=== PATIENT | male | born 1980 | race Caucasian/White ===

== ENCOUNTER → 2016-10-28 10:00 | Emergency (ER) | payer OTHER ==
[~2016-10-28 10:00] MED LIST: HYDROcodone/ACETAMIN 5-325 MG* 1 TAB PO ONE; Iohexol 350* (CONTRAST) 500 ML MDV IV ONE
[2016-10-28 10:35] LABS: Hematocrit 41 % (42-52); Hemoglobin 13.6 g/dl (14.0-18.0); Mean Corpuscular HGB Conc 33 g/dl (31-36); Mean Corpuscular Hemoglobin 31 pg (27-31); Mean Corpuscular Volume 95 fL (80-94); Mean Platelet Volume 9 um3 (7.4-10.4); Red Blood Count 4.36 10^6/ul (4.0-5.4); Red Cell Distribution Width 14 % (10.5-15)
--- NOTE | 2016-10-28 11:06 | CONSULT ---
Consult Consult: Surgery Consult Asked by Dr. Obregon to evaluate laceration on arm of pt. Mr. Corona is a 36 y.o. male who reportedly intentionally cut his left arm and neck [facility] in [facility]. Upon arrival to ER he had been estimated to have lost 2 liters of blood. He was hypotensive and there was arterial bleeding from the left arm laceration. Dr. Obregon was able to stop the bleeding with some sutures and has asked me to assess whether this is adequate control for transfer. PMHx: none Meds: none NKDA SH: smokes tob. Vital Signs 10/28/16 10/28/16 10:24 11:02 Temperature 98.7 F Pulse Rate 70 61 Respiratory 20 17 Rate Blood Pressure 119/65 (mmHg) O2 Sat by Pulse 98 99 Oximetry PE: general: WDWN pale male in NAD HEENT: ~10 cm superficial laceration to left neck, no active bleeding. Ext: Left arm is notable for ~18 cm laceration extending from upper arm across antecubital fossa to lower arm. There is exposed subcutaneous fat, tendons and veins. There is some suture material visible. There is no active bleeding. There is a pink color to the hand and good capillary refill. The radial pulse is easily palpable. Laboratory Results - last 24 hr 10/28/16 10/28/16 10/28/16 10:18 10:18 10:18 WBC 11.0 H RBC 4.36 Hgb 13.6 L Hct 41 L MCV 95 H MCH 31 MCHC 33 RDW 14 Plt Count 184 MPV 9 Neut % (Auto) 60.4 Lymph % (Auto) 28.4 [place] % (Auto) 8.6 Eos % (Auto) 1.9 Baso % (Auto) 0.7 Absolute Neuts (auto) 6.7 Absolute Lymphs (auto) 3.1 Absolute Monos (auto) 1.0 H Absolute Eos (auto) 0.2 Absolute Basos (auto) 0.1 Absolute Nucleated RBC 0.01 Nucleated RBC % 0 INR (Anticoag Therapy) 0.94 APTT 26.2 Blood Type A Positive Antibody Screen Negative Crossmatch See Detail A/P: With no active bleeding, Mr. Corona is stable for transfer. A more complete assessment of the arterial flow to the arm may be in order and if intervention needed, such as vascular repair, he will need vascular surgery. CLFoster
[2016-10-28 12:33] LABS: Albumin 3.6 g/dL (3.2-5.2); BUN/Creatinine Ratio 21.3 (8-20); EGFR Non-African American 95.7 (>60); Globulin 2.4 g/dL (2-4); Potassium 4.2 mmol/L (3.5-5.0); Total Bilirubin 0.3 mg/dL (0.2-1.0)
[2016-10-28 13:11] LABS: Hematocrit 40 % (42-52); Hemoglobin 13.3 g/dl (14.0-18.0)
--- NOTE | 2016-10-28 14:16 | RAD ---
INDICATION: Laceration. Evaluate for extravasation. COMPARISON: None TECHNIQUE: 319 axial source images were acquired following the intravenous injection of 125 cc Omnipaque 350. Coronal and sagittal reconstructed images were acquired. Imaging was performed with the patient's arm at his side which results in some degree of artifact and degrades the images. FINDINGS: The CT confirms vascular patency to the level of the forearm. Evaluation of the radial and ulnar arteries is very limited but the vessels are believed to be patent. There The sensitivity of this examination is not adequate to evaluate for subtle extravasation which would require routine arteriography. This study must be viewed in context with the clinical examination and the presence or absence of radial and ulnar pulses. Doppler interrogation could also be utilized as an adjunct. There is no significant soft tissue hematoma. IMPRESSION: NO GROSS ABNORMALITIES IDENTIFIED WITHIN THE LIMITATIONS OF THE CT EXAMINATION. CLINICAL AND ADDITIONAL IMAGING FOLLOW-UP MAY BE REQUIRED.
--- NOTE | 2016-10-28 16:38 | PN ---
Progress Note - Progress Note Note: Procedure note Under sterile conditions, using 1% lidocaine, Left arm laceration sutured closed using interrupted 3-0 polysorb in the subcutaneous layer and 4-0 surgipro in a continuous horizontal mattress stitch to close the skin. The left neck incision was closed using 1% lidocaine and 4-0 surgipro to close the skin in a horizontal continuous mattress stitch. Pt. tolerated the procedure well. Xeroform and dry sterile dressing applied. Pt. to leave dressing in place for 48 hours then remove and keep clean with soap and water daily. He should f/u in the office in ~7 days. CL[facility]oster
[2016-10-28 18:55] VITALS: BP 134/62
--- NOTE | 2016-10-28 21:34 | ED ---
Amie Roberts Anna, scribed for Buck Obregon MD on 10/28/16 at 1025 . Adult Trauma - HPI Summary HPI Summary: Patient is a 36 y/o male BIBA to [facility] presenting with the sudden onset of a constant laceration that occurred at 0910 this morning. The patient reports he cut himself with a razor. The laceration extends from his left superior aspect of the antecubital fossa to his left wrist. Upon arrival at [facility], the patient initially had a really tight tourniquet with bluish discoloration of his left upper extremity. He had no feeling in the upper extremity. The patient lost an estimated 2 1/2 L blood at the facility. He is additionally pale and diaphoretic. He reports he had a tetanus vaccine 2 years ago. Patient medications were reviewed on this visit. - History of Current Complaint Stated Complaint: LACERATION Hx Obtained From: Patient Mechanism of Injury: Penetrating Trauma - razor - Allergy/Home Medications Allergies/Adverse Reactions: Allergies Allergy/AdvReac Type Severity Reaction Status Date / Time No Known Allergies Allergy Verified 10/28/16 10:54 PMH/Surg Hx/FS Hx/Imm Hx Cardiovascular History: Denies: Hx Cardiac Arrest Psychiatric History: Reports: Hx Anxiety, Hx Depression - medicated on Zoloft - Family History Known Family History: Positive: Other - CA - Social History Occupation: Unemployed Lives: Alf - Half-Way Hx Substance Use: No Substance Use Type: Reports: None Hx Tobacco Use: No Smoking Status (MU): Never Smoked Tobacco Review of Systems Constitutional: Other - pale Positive: Skin Diaphoresis Skin: Other - Laceration. Pale skin. LUE bluish. Positive: Numbness All Other Systems Reviewed And Are Negative: Yes Physical Exam - Summary Physical Exam Summary: VITAL SIGNS: Reviewed. GENERAL: ~Patient is a well-developed and nourished male who is lying in the stretcher. ~Patient is pale, diaphoretic, and hypotensive. HEAD AND FACE: No signs of trauma. ~No ecchymosis, hematomas or skull depressions. No sinus tenderness. EYES: PERRLA, EOMI x 2, No injected conjunctiva, no nystagmus. EARS: Hearing grossly intact. Ear canals and tympanic membranes are within normal limits. MOUTH: Oropharynx within normal limits. NECK: Superficial laceration left side of neck. Supple, trachea is midline, no adenopathy, no JVD, no carotid bruit, no c-spine tenderness, neck with full ROM. CHEST: Symmetric, no tenderness at palpation LUNGS: Clear to auscultation bilaterally. No wheezing or crackles. CVS: Regular rate and rhythm, S1 and S2 present, no murmurs or gallops appreciated. Good pulses throughout. ABDOMEN: Soft, non-tender. No signs of distention. No rebound no guarding, and no masses palpated. Bowel sounds are normal. EXTREMITIES: Upon arrival, patient has bluish discoloration of the upper extremity with no feeling as a result of a tight tourniquet. We untied the tourniquet and controlled the arterial bleed. His arm is now a pink color with good neurovascular sensation and good capillary refill. NEURO: Alert and oriented x 3. No acute neurological deficits. Speech is normal and follows commands. SKIN: Laceration extending from supperior aspect of the left antecubital fossa all the way to the wrist. laceration is deep and muscle , addipose tissue and vasculature as well as tendons are exposed. . It is an arterial bleed. The patient also has a superficial laceration on the left side of his neck. The patient is pale. Upon arrival, patient has bluish discoloration of the upper extremity with no feeling as a result of a tight tourniquet. We untied the tourniquet and controlled the arterial bleed. His arm is now a pink color with good neurovascular sensation and good capillary refill. Triage Information Reviewed: Yes Vital Signs On Initial Exam: Temp Pulse Resp BP Pulse Ox 98.7 F 61 17 119/65 99 10/28/16 10:24 10/28/16 11:02 10/28/16 11:02 10/28/16 10:24 10/28/16 11:02 Vital Signs Reviewed: Yes Procedures - Procedure Summary Procedure Summary: Pt came in with an arterial bleed. We localized it. It probably is an ulna recurrent or ulna colateral artery. We placed two sutures and the bleeding was controlled. Right now the pt is not having any arterial bleed and the bleed is controlled. Diagnostics - Vital Signs Vital Signs Temp Pulse Resp BP Pulse Ox 10/28/16 18:45 75 20 134/62 96 10/28/16 18:30 74 17 114/69 97 10/28/16 18:15 78 16 130/66 97 10/28/16 18:00 74 20 97 10/28/16 17:45 85 16 97 10/28/16 17:29 77 16 97 10/28/16 17:15 73 17 96 10/28/16 17:00 74 17 98 10/28/16 16:45 71 15 98 10/28/16 16:30 77 16 97 10/28/16 16:15 76 20 97 10/28/16 16:00 70 17 97 10/28/16 15:45 67 20 98 10/28/16 15:30 73 16 99 10/28/16 15:15 72 20 98 10/28/16 15:00 67 19 97 10/28/16 14:45 69 20 97 10/28/16 14:30 76 16 98 10/28/16 14:15 71 19 98 10/28/16 14:00 83 22 98 10/28/16 13:49 81 98 10/28/16 13:15 72 19 118/66 98 10/28/16 13:00 74 15 113/67 97 10/28/16 12:45 82 19 121/81 98 10/28/16 12:30 74 17 113/62 97 10/28/16 12:15 73 18 109/63 97 10/28/16 12:00 71 18 111/66 97 10/28/16 11:45 69 18 113/65 97 10/28/16 11:30 66 17 110/65 98 10/28/16 11:15 62 17 114/67 97 10/28/16 11:02 61 17 99 10/28/16 10:24 98.7 F 70 20 119/65 98 - Laboratory Lab Results: Lab Results 10/28/16 10/28/16 10/28/16 Range/Units 10:18 10:18 10:18 WBC 11.0 H (3.5-10.8) 10^3/ul RBC 4.36 (4.0-5.4) 10^6/ul Hgb 13.6 L (14.0-18.0) g/dl Hct 41 L (42-52) % MCV 95 H (80-94) fL MCH 31 (27-31) pg MCHC 33 (31-36) g/dl RDW 14 (10.5-15) % Plt Count 184 (150-450) 10^3/ul MPV 9 (7.4-10.4) um3 Neut % (Auto) 60.4 (38-83) % Lymph % (Auto) 28.4 (25-47) % [place] % (Auto) 8.6 (1-9) % Eos % (Auto) 1.9 (0-6) % Baso % (Auto) 0.7 (0-2) % Absolute Neuts (auto) 6.7 (1.5-7.7) 10^3/ul Absolute Lymphs (auto) 3.1 (1.0-4.8) 10^3/ul Absolute Monos (auto) 1.0 H (0-0.8) 10^3/ul Absolute Eos (auto) 0.2 (0-0.6) 10^3/ul Absolute Basos (auto) 0.1 (0-0.2) 10^3/ul Absolute Nucleated RBC 0.01 10^3/ul Nucleated RBC % 0 INR (Anticoag Therapy) 0.94 (0.89-1.11) APTT 26.2 (26.0-36.3) seconds Sodium (133-145) mmol/L Potassium (3.5-5.0) mmol/L Chloride (101-111) mmol/L Carbon Dioxide (22-32) mmol/L Anion Gap (2-11) mmol/L BUN (6-24) mg/dL Creatinine (0.67-1.17) mg/dL Est GFR ( Amer) (>60) Est GFR (Non-Af Amer) (>60) BUN/Creatinine Ratio (8-20) Glucose (70-100) mg/dL Calcium (8.6-10.3) mg/dL Total Bilirubin (0.2-1.0) mg/dL AST (13-39) U/L ALT (7-52) U/L Alkaline Phosphatase (34-104) U/L Total Protein (6.4-8.9) g/dL Albumin (3.2-5.2) g/dL Globulin (2-4) g/dL Albumin/Globulin Ratio (1-3) Blood Type A Positive Antibody Screen Negative Crossmatch See Detail 05/29/17 05/29/17 Range/Units 10:18 13:00 WBC (3.5-10.8) 10^3/ul RBC (4.0-5.4) 10^6/ul Hgb 13.3 L (14.0-18.0) g/dl Hct 40 L (42-52) % MCV (80-94) fL MCH (27-31) pg MCHC (31-36) g/dl RDW (10.5-15) % Plt Count (150-450) 10^3/ul MPV (7.4-10.4) um3 Neut % (Auto) (38-83) % Lymph % (Auto) (25-47) % [place] % (Auto) (1-9) % Eos % (Auto) (0-6) % Baso % (Auto) (0-2) % Absolute Neuts (auto) (1.5-7.7) 10^3/ul Absolute Lymphs (auto) (1.0-4.8) 10^3/ul Absolute Monos (auto) (0-0.8) 10^3/ul Absolute Eos (auto) (0-0.6) 10^3/ul Absolute Basos (auto) (0-0.2) 10^3/ul Absolute Nucleated RBC 10^3/ul Nucleated RBC % INR (Anticoag Therapy) (0.89-1.11) APTT (26.0-36.3) seconds Sodium 137 (133-145) mmol/L Potassium 4.2 (3.5-5.0) mmol/L Chloride 108 (101-111) mmol/L Carbon Dioxide 25 (22-32) mmol/L Anion Gap 4 (2-11) mmol/L BUN 19 (6-24) mg/dL Creatinine 0.89 (0.67-1.17) mg/dL Est GFR ( Amer) 123.0 (>60) Est GFR (Non-Af Amer) 95.7 (>60) BUN/Creatinine Ratio 21.3 H (8-20) Glucose 87 (70-100) mg/dL Calcium 9.0 (8.6-10.3) mg/dL Total Bilirubin 0.30 (0.2-1.0) mg/dL AST 15 (13-39) U/L ALT 18 (7-52) U/L Alkaline Phosphatase 57 (34-104) U/L Total Protein 6.0 L (6.4-8.9) g/dL Albumin 3.6 (3.2-5.2) g/dL Globulin 2.4 (2-4) g/dL Albumin/Globulin Ratio 1.5 (1-3) Blood Type Antibody Screen Crossmatch Result Diagrams: 10/28/16 13:00 10/28/16 10:18 Lab Statement: Any lab studies that have been ordered have been reviewed, and results considered in the medical decision making process. - CT CT LUE CT Interpretation: No Acute Changes CT Interpretation Completed By: Radiologist - IMPRESSION: NO GROSS ABNORMALITIES IDENTIFIED WITHIN THE LIMITATIONS OF THE CT EXAMINATION. CLINICAL AND ADDITIONAL IMAGING FOLLOW-UP MAY BE REQUIRED. - EKG 1009 Cardiac Rate: Bradycardia - 55 bpm EKG Rhythm: Sinus Bradycardia ST Segment: Normal Ectopy: None EKG Interpretation: No ST elevations Re-Evaluation - Re-Evaluation First Eval Re-Evaluation Time: 11:14 Change: Improved Comment: Patient is improved from his initial arrival. Adult Trauma Course/Dx - Course Course Of Treatment: Patient is medically cleared for MHU evaluation at 1636. Assessment/Plan: Patient is a 36 y/o male BIBA to [facility] presenting with the sudden onset of a constant laceration that occurred at 0910 this morning. The patient reports he cut himself with a razor. The laceration extends from his left superior aspect of the antecubital fossa to his left wrist. Upon arrival at [facility], the patient initially had a really tight tourniquet with bluish discoloration of his left upper extremity. He had no feeling in the upper extremity. The patient lost an estimated 2 1/2 L blood at the facility. He is additionally pale and diaphoretic. He reports he had a tetanus vaccine 2 years ago. Patient medications were reviewed on this visit. Test results WNL except WBC of 11.0, H&H of 13.6/41. Initially when the pt came in, he was hypotensive with BP 80/40. Pt seemed to have an arterial bleed or possibly the ulnar recurrent artery or radial recurrent artery. As per EMS report, pt already had lost 2.5 L of blood. The pt was very pale, diaphoretic, and feeling like he was going to pass out. I immediately started IV fluids bolus with a large bore IV access. Patient was transfused uncross-matched blood, with patient permission due to his active bleeding and possible hypovolemic state. I successfully stop the arterial bleed. After the pt received 2.5 L of fluids and 1 unit of blood, the arterial bleed stopped, the pt stated to feel better, and the BP improved. Now vitals are temperature 98.7 F, HR 70, RR 20, O2 Sat 98 and BP 118/68. I discussed the case with Dr. Rizzo who came and evaluated the pt. After evaluation, she reports pt should be trans to center with vascular surgeon. I discussed the case with Dr. Vidal, who is the vascular surgeon at [place] and he recommends that the pt get a CTA to see if there is any externalization of blood. CTA reveals no gross abnormalities. With multiple evaluations of LUE, pt has good pulses, good radial and ulna pulses, good capillary refill, good sensation, good movement of fingers. After the CTA results, I discussed the case with Dr. Rizzo, who came and repaired the laceration in the neck and LUE. At this point, we have a MHE and the pt continues to report that if he is transferred, he will kill himself. We also were informed by the long-term officers that the pt will be one-to-one until tomorrow morning, where he will be seen for a psychiatric evaluation. Discussed care with psychiatrist. Dr. Cruz recommends pt be transferred back to [address] [place] [address] facility seeing as pt is going to have a one-to-one. At this time he is hemodynamically stable and A+Ox 3. - Diagnoses Provider Diagnoses: Laceration of left upper extremity, Laceration of neck, Suicide attempt - Physician Notifications Discussed Care Of Patient With: Dr. Rizzo (surgeon) at 1029. Discussed current state and plan of care. She agrees to come see the patient and laceration. Dr. Rizzo (surgeon) at 1055. She recommends that the patient be transferred because of the arterial bleed and need for a vascular surgeon. She says that the patient is stable for transfer at this time. Dr. Mark ([facility]) at 1108. He doesn't think the patient needs to be transferred. Dr. Rizzo (surgeon) at 1122. Discussed possibility of transfer and patient's vitals following 1 unit of blood. She says the patient no longer needs to be transferred. Discussed with surgeon, [facility], at 1128. Agreed that there is a vascular surgeon and that Dr. Obregon could speak with the vascular surgeon. Dr. Vidal ([facility] vascular surgeon) at 1145. Dr. Vidal recommends the patient have a CTA of LUE. Dr. Rizzo (surgeon ) at 1422. Discussed length of laceration and negative CTA results. Dr. Rizzo agrees to take care of the laceration. [facility] at 1446. Shared update with [facility]. - Critical Care Time Critical Care Time: 75-104 min Discharge - Discharge Plan Condition: Stable Disposition: OTHER Discharge Disposition Comment: Discharged to return to [facility] Patient Education Materials: Laceration (ED) The documentation as recorded by the Amie fox Anna accurately reflects the service I personally performed and the decisions made by , Buck Obregon MD.
== END ==
LOC: ED 10:00
DX: S61.512A Laceration without foreign body of left wrist, initial encounter (principal); S11.91XA Laceration without foreign body of unspecified part of neck, initial encounter; X78.8XXA Intentional self-harm by other sharp object, initial encounter; Y92.9 Unspecified place or not applicable; F32.9 Major depressive disorder, single episode, unspecified; F41.9 Anxiety disorder, unspecified
CPT/HCPCS: 12006; 36415; 36430; 80053; 85014; 85018; 85025; 85610; 85730; 86850; 86900; 86901; 86922; 93005; 99284; P9040; Q9967